=== PATIENT | male | born 1945 | race Caucasian/White ===

== ENCOUNTER 2018-07-25 14:10 | Outpatient (CLI) | payer MEDICARE ==
--- NOTE | 2018-07-25 16:03 | MRI ---
Noncontrast enhanced MRI images lumbar spine. HISTORY: Lumbar radiculopathy For the purposes of this dictation the last freely movable vertebral body which will be considered be the L5 vertebral body. Other vertebral bodies numbered according to this. There is a transitional type vertebral body which will be considered to be the S1 vertebral body. L1-2: Mild facet hypertrophy is seen. The central canal neural foramen are patent. 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 L2-3: Disc desiccation seen. There is a broad-based disc bulge with bilateral facet and ligamentum fl avum hypertrophy. This results in moderate central and lateral recess stenosis. There is moderate left and mild to moderate right neural foraminal narrowing due to facet hypertrophy. L3-4: Disc desiccation seen. There is a broad-based disc bulge with bilateral facet and ligamentum fl avum hypertrophy. No significant degree of central stenosis seen. There is moderate bilateral neural foraminal narrowing seen. L4-5: Disc desiccation seen. There is a broad-based disc protrusion compressing the thecal sac. There is bilateral facet and ligamentum flavum hypertrophy. This results in severe L4-5 central and lateral recess stenosis. There is a moderate severe left and severe right-sided neural foraminal narr owing seen. L5-S1: Disc desiccation seen. There is a broad-based disc bulge compressing the thecal sac. There is severe facet and ligamentum flavum hypertrophy. This results in severe L5-S1 central stenosis with lateral recess stenosis. There is also severe bilateral neural foraminal narrowing seen. S1-2: Some facet hypertrophic changes seen. There is a transitional type S1 vertebral body. There is a moderate severe right S1-S2 neural foraminal narrowing. The left neural foramen is patent. 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
== END 2018-07-25 14:11 | disposition home or self-care (01) ==
LOC: BICMRI 14:10
PROVIDERS: ATTEND Neurological Surgery
DX: M54.16 Radiculopathy, lumbar region (principal); M51.37 Other intervertebral disc degeneration, lumbosacral region; M48.061 Spinal stenosis, lumbar region without neurogenic claudication; M48.07 Spinal stenosis, lumbosacral region; Q76.49 Other congenital malformations of spine, not associated with scoliosis
CPT/HCPCS: 72148

== ENCOUNTER 2022-09-10 13:25 | Outpatient (CLI) | payer MEDICARE | END 2022-09-10 13:26 | disposition home or self-care (01) | LOC: LABBT 13:25 | PROVIDERS: ATTEND Neurological Surgery | DX: Z01.810 Encounter for preprocedural cardiovascular examination (principal); M48.061 Spinal stenosis, lumbar region without neurogenic claudication | CPT/HCPCS: 72131; 93005; 93010 ==

== ENCOUNTER 2022-09-12 08:40 | Day surgery (SDC) | payer MEDICARE ==
[2022-09-10 13:58] VITALS: BMI 30.5
[2022-09-12] MEDS ORDERED: Fentanyl 250 MCG/5 ML VIAL ONE (09:05)
[2022-09-12] MEDS ORDERED: Dexmedetomidine 200 MCG/2 ML VIAL ONE (09:06)
[2022-09-12] MEDS ORDERED: Thrombin 5000 UNITS/5 ML VIAL ONE ×2 (09:07→12:14)
[2022-09-12] MEDS ORDERED: Bupivacaine HCl 0.5%/Epinephrine 1:200,000/PF 30 ml Vial ONE (09:07)
[2022-09-12] MEDS ORDERED: Sodium Chloride 0.9% 100 ML ONE ×2 (09:19→15:03)
[2022-09-12] MEDS ORDERED: CEFAZOLIN 2 GM VIAL ONE ×2 (09:19→15:02)
[2022-09-12] MEDS ORDERED: Oxymetazoline HCl 0.05% (30 ML BOT) ONE (09:53)
[2022-09-12] MEDS ORDERED: PHENYLEPHRINE-NS 100 MCG/ML 10 ML SYRINGE ONE (10:17)
[2022-09-12] MEDS ORDERED: Rocuronium Bromide 10 MG/ML (10ML VIAL) ONE (10:17)
[2022-09-12] MEDS ORDERED: Ondansetron PF 4 MG/2 ML Vial ONE (10:17)
[2022-09-12] MEDS ORDERED: Dexamethasone 20 MG/5 ML VIAL ONE (10:17)
[2022-09-12] MEDS ORDERED: Lidocaine 1% PF 5 ML VIAL ONE (10:17)
[2022-09-12] MEDS ORDERED: Glycopyrrolate 0.2 MG/ML 5 ML SYRINGE ONE (10:17)
[2022-09-12] MEDS ORDERED: PROPOFOL 200 MG/20 ML VIAL ONE (10:17)
[2022-09-12] MEDS ORDERED: SUGAMMADEX SODIUM 200 MG/2 ML VIAL ONE (12:14)
[2022-09-12] MEDS ORDERED: HYDROmorphone 2 MG/ML VIAL ONE (12:34)
[2022-09-12] MEDS ORDERED: fentaNYL 50 mcg/mL 1 mL Vial ONE ×4 (13:18→14:17)
[2022-09-12] MEDS ORDERED: Tamsulosin HCl 0.4 MG CAP ONE (13:19)
== END 2022-09-12 16:35 | disposition home or self-care (01) ==
LOC: SDC 08:40
PROVIDERS: ATTEND Neurological Surgery
PROC: 0SG0371 Fusion of Lumbar Vertebral Joint with Autologous Tissue Substitute, Posterior Approach, Posterior Column, Percutaneous Approach (ICD-10-PCS; principal; 2022-09-12)
DX: M48.062 Spinal stenosis, lumbar region with neurogenic claudication (principal); M43.16 Spondylolisthesis, lumbar region; M54.16 Radiculopathy, lumbar region; E78.5 Hyperlipidemia, unspecified; G89.29 Other chronic pain; M19.90 Unspecified osteoarthritis, unspecified site; M10.9 Gout, unspecified; I10 Essential (primary) hypertension; Z96.659 Presence of unspecified artificial knee joint; Z96.649 Presence of unspecified artificial hip joint; Z79.899 Other long term (current) drug therapy
CPT/HCPCS: 20930; 20936; 22612; 22840; 63047; 63048; 93005; C1713 ×2; C1889 ×2; J3010; 93010; J1100; J1170; J2405; J2704; J3490